=== PATIENT | female | born 1940 | race Caucasian/White ===

== ENCOUNTER → 2017-09-05 | Outpatient (CLI) | payer MEDICARE ==
[~2017-09-05] MED LIST: AMINOPHYLLINE 250 MG/10 ML VIAL. ONE; REGADENOSON 0.4 MG/5 ML DISP.SYRIN. IV ONE
--- NOTE | 2017-09-08 10:16 | PCVCIMAG ---
APPROVED REPORT Study performed: 09/05/2017 07:38:41 EXAM: Comprehensive 2D, Doppler, and color-flow Echocardiogram Patient Location: Echo lab Status: routine BSA: 1.78 HR: 71 bpmBP: 122/72 mmHg Rhythm: NSR Other Information Study Quality: Adequate Risk Factors: Cardiac Risk Factors: Hyperlipidemia Indications Dyspnea 2D Dimensions LVEF(%): 55.46 (>50%) IVSd: 9.51 (7-11mm) LVDd: 41.99 mm PWd: 8.81 (7-11mm) LVDs: 29.99 (25-40mm) Left Atrium: 35.77 (27-40mm) Aortic Root: 29.12 mm LV Single Plane 4CH: 68.95 % LV Single Plane 2CH: 65.20 %Anaya's LVEF: 67.07 % Biplane EF: 67.3 % Volumes Left Atrial Volume (Systole) Single Plane 4CH: 47.37 mLSingle Plane 2CH: 46.38 mL LA ESV Index: 26.00 mL/m2 Aortic Valve AoV Peak Mohan.: 1.20 m/s AO Peak Gr.: 5.72 mmHgLVOT Max P.36 mmHg LVOT Max V: 0.92 m/s AI Vmax: 4.01 m/s AI [place]: 2.33 m/s2 AI PHT: 504.88 ms Mitral Valve E/A Ratio: 1.5 MV Decel. Time: 247.25 ms MV E Max Mohan.: 0.61 m/s MV A Mohan.: 0.40 m/s IVRT: 110.73 ms Pulmonary Valve PV Peak Mohan.: 0.61 m/sPV Peak Gr.: 1.48 mmHg Pulmonary Vein P Vein S: 0.57 m/sP Vein A: 0.44 m/s P Vein D: 0.57 m/sP Vein A Dur.: 173.0 msec P Vein S/D Ratio: 1.00 Tricuspid Valve TR Peak Mohan.: 2.54 m/s TR Peak Gr.: 25.81 mmHg Left Ventricle The left ventricle is normal size. There is normal LV segmental wall motion. There is normal left ventricular wall thickness. Left ventricular systolic function is normal. The left ventricular ejection fraction is within the normal range. LVEF is 65%. Grade II - pseudonormal filling dynamics. Right Ventricle The right ventricle is normal size. The right ventricular systolic function is normal. Atria The left atrium size is normal. The right atrium size is normal. Aortic Valve The aortic valve is normal in structure. Mild aortic regurgitation. There is no aortic valvular stenosis. Mitral Valve The mitral valve is normal in structure. Trace mitral regurgitation. No evidence of mitral valve stenosis. Tricuspid Valve The tricuspid valve is normal in structure. Mild tricuspid regurgitation with PAP of 33 mmHg. Pulmonic Valve The pulmonary valve is normal in structure. There is no pulmonic valvular regurgitation. Great Vessels The aortic root is normal in size. IVC is normal in size and collapses with >50% inspiration Pericardium There is no pericardial effusion. <Conclusion> The left ventricle is normal size. LVEF is 65%. The aortic valve is normal in structure. Mild aortic regurgitation. The mitral valve is normal in structure. Trace mitral regurgitation. The tricuspid valve is normal in structure. Mild tricuspid regurgitation with PAP of 33 mmHg. The pulmonary valve is normal in structure. There is no pericardial effusion.
--- NOTE | 2017-09-08 16:46 | PCVCIMAG ---
APPROVED REPORT Exam: Nuclear Stress Test Indication: Dyspnea Patient Location: Out-Patient Stress Nurse: Soila Zhao RN AL Tech:Helene SloanFELIX bowie Ht: 5 ft 6 in Wt: 153 lbs BSA: 1.78 m2 HR: 71 bpm BP: 147/67 mmHg BMI: 24.6 Rhythm: SR Medical History Medical History: Hyperlipidemia, Age Medications: Proventil, buspar, zocor Allergies: PCN, Tetracycline Pretest Chest Pain Characteristics: No chest pain NM EXAM: Myocardial Perfusion REST/STRESS Imaging Protocol: Rest Tc-99m/Stress Tc-99m 1 day Resting Data Rest SPECT myocardial perfusion imaging was performed in supine position 45 minutes following the intravenous injection of 8.3 mCi of Tc-99m Sestamibi. Time of rest injection: 829 Date: 09/05/2017 Administration Route: IV Administration Site: Right Hand Pharmacologic Stress Pharmacologic stress test was performed by injecting Regadenoson 0.4 mg IV push followed by the intravenous injection of 26.1 mCi of Tc-99m Sestamibi. Time of stress injection: 949 Date: 09/05/2017 Administration Route: IV Administration Site: Right Hand Gated Stress SPECT was performed 45 minutes after stress injection. The images were gated to evaluate regional wall motion and calculate left ventricular ejection fraction. Study Data Post stress, the left ventricular ejection was 71%.. SSS: 1 SRS: 0 SDS: 1 TID = 1.24. Perfusion There is a medium area of moderately reduced uptake in the mid and apical segment of the anterior wall which is seen on the stress images as well as the resting images. This area thickens and moves normally and is most consistent with attenuation artifact. Wall Motion Normal left ventricular wall motion. Nuclear Conclusion 1. LOW RISK STUDY Interpreted by: Homar Bass MD Electronically Approved: 09/08/2017 16:45:37 Stress Test Details Stress Test: Pharmacologic stress testing performed using 0.4 mg of regadenoson per 5 mL given IV over 10 seconds. Reason for pharmacologic stress test: physical limitation. Reversal agent Aminophyline 100 mg, given intravenously for nausea, dyspnea, headache. HR Resting HR: 71 bpmMax Heart Rate (APMHR): 144 bpm Max HR Achieved: 92 bpmTarget HR (85% APMHR): 122 bpm % of APMHR: 63 Recovery HR: 82 bpm BP Resting BP: 147/67 mmHg Max BP: 117/58 mmHg BP response to stress: Normal blood pressure response to stress. ECG Resting ECG: Sinus Rhythm Stress ECG: Sinus Rhythm Arrhythmia: None Recovery ECG: Sinus Rhythm Clinical Reason for Termination: Completed protocol Stress Symptoms: Abdominal discomfort, Dyspnea, Headache Exercise duration: 0 min 55 sec Symptoms resolved during recovery with aminophylline. Nurse Comments Symptoms resolved with aminophylline. Stress ECG Conclusion 1. ADEQUATE RESPONSE TO IV LEXISCAN 2. INADEQUATE HEART RATE FOR ECG DIAGNOSIS <Conclusion> 1. ADEQUATE RESPONSE TO IV LEXISCAN 2. INADEQUATE HEART RATE FOR ECG DIAGNOSIS
== END | disposition home or self-care (01) ==
LOC: PCVCIMAG 07:46
PROVIDERS: ATTEND Internal Medicine
DX: I08.2 Rheumatic disorders of both aortic and tricuspid valves (principal); R06.00 Dyspnea, unspecified
CPT/HCPCS: 78452; 93017; 93306; A9500; J0280; J2785